=== PATIENT | male | born 1975 | race Caucasian/White ===

== ENCOUNTER 2018-07-15 23:26 | Emergency (ER) | payer OTHER ==
[~2018-07-15] VITALS: Ht 170.2 cm; Wt 111.2 kg
[2018-07-16 00:03] VITALS: Ht 170.2 cm; Wt 111.2 kg
[2018-07-16] MEDS ORDERED: KETOROLAC 60 MG INJ IM STA (03:33)
[2018-07-16] MEDS ORDERED: IBUP-1542 PO (04:51)
[2018-07-16 05:13] VITALS: BP 153/91; PULSE 91; RESP 19
--- NOTE | 2018-07-17 12:10 | ERD ---
ER Documentation Chief Complaint Chief Complaint pain left wrist, left lower leg around 1643, tried to break a fall HPI 43-year-old male presents after tripping and hurting his left wrist and left calf at 4 PM today. Patient states that he was walking when he tripped. Denies any predisposing syncope or dizziness. States that the pain in the wrist is 8 out of 10 and he has limited range of motion of the wrist. Pain is nonradiating and dull. Denies any numbness or tingling, pallor, or cyanosis. Patient is ambulatory. Denies past medical history. Denies allergies. Denies medications. Denies surgeries. Denies alcohol, tobacco, drug use. Up to date on vaccines. ROS All systems reviewed and are negative except as per history of present illness. Medications Home Meds Active Scripts Ibuprofen* (Motrin*) 600 Mg Tab, 600 MG PO Q6 for pain, #30 TAB Prov:RAN TORRES 07/16/18 Allergies Allergies: Coded Allergies: No Known Drug Allergies (Verified Allergy, Unknown, 07/16/18) PMhx/Soc Medical and Surgical Hx: pt denies Medical Hx History of Surgery: Yes (cyst removed from lower back) Anesthesia Reaction: No Hx Neurological Disorder: No Hx Respiratory Disorders: No Hx Cardiac Disorders: No Hx Psychiatric Problems: No Hx Miscellaneous Medical Probl: No Hx Alcohol Use: No Hx Substance Use: No Hx Tobacco Use: Yes (quit) Smoking Status: Former smoker FmHx Family History: No diabetes, No coronary disease, No other Physical Exam Vitals Vital Signs Date Temp Pulse Resp B/P (MAP) Pulse Ox O2 O2 Flow FiO2 Time Delivery Rate 07/16/18 98.3 91 19 153/91 99 Room Air 05:13 (111) 07/16/18 98.7 103 18 160/86 97 00:03 (110) Physical Exam Const: No acute distress Head: Atraumatic Eyes: Normal Conjunctiva ENT: Normal External Ears, Nose and Mouth. Resp: Clear to auscultation bilaterally Cardio: Regular rate and rhythm, no murmurs Skin: No petechiae or rashes Back: No midline or flank tenderness Left wrist: Left wrist is tender to palpation over the radial ulnar junction. There is associated edema. There is no overlying skin lesion or ecchymosis or erythema. Patient has limited flexion and extension of the wrist. Patient has flexion and extension of fingers. Radial pulses intact. Distal sensation is intact. There is no pallor or cyanosis. Left Le cm nummular abrasion noted over the inferior patellar region. There is no edema, ecchymosis, or bony deformity noted in the patellar region, and no tenderness to palpation.. Ankle has full range of motion with no tenderness to palpation. Mays test is negative. There is some tenderness to palpation over the calf although there is no obvious edema, or erythema or ecchymosis. Knee has full range of motion. All compartments are warm and soft. Distal pulses and sensation are intact. There is no pallor or cyanosis. Neur: Awake and alert Psych: Normal Mood and Affect Results 24 hrs Current Medications Medications Dose Sig/Rudy Start Time Status Last (Trade) Ordered Route PRN Stop Time Admin Dose Reason Admin Ketorolac 60 mg ONCE STAT 07/16/18 DC 07/16/18 Tromethamine IM 03:33 03:42 (Toradol) 07/16/18 03:34 Procedures/MDM DIAGNOSTIC IMAGING REPORT Patient: KD FIGUEROA : 1975 Age: 43 Sex: M MR #: [id number] DOS: 07/16/18 0328 Ordering MD: RAN TORRES Location: [facility] Room/Bed: PROCEDURE: Left hand series CLINICAL INDICATION: Trauma TECHNIQUE: AP, lateral and oblique images left hand were obtained COMPARISON: None FINDINGS: There is an acute comminuted fracture of the distal left radius with intra- articular extension and minimal volar displacement. No other fractures or dislocations. No focal bony blastic or lytic lesions. Soft tissues unremarkable. IMPRESSION: Comminuted intra-articular distal left radial fracture as above. RPTAT:AAJJ Physician Zach Date Time Electronically viewed and signed by Physician Zach on 07/16/2018 04:32 BM/ CC: RAN TORRES [id number] DIAGNOSTIC IMAGING REPORT Patient: KD FIGUEROA : 1975 Age: 43 Sex: M MR #: [id number] DOS: 07/16/18 0328 Ordering MD: RAN TORRES Location: [facility] Room/Bed: PROCEDURE: Left knee series CLINICAL INDICATION: Trauma TECHNIQUE: AP, lateral and oblique images were obtained of the left knee COMPARISON: None FINDINGS: There is no evidence acute fracture dislocation. The bony mineralization is normal. No focal bony blastic or lytic lesions. No evidence of left knee joint effusion. Soft tissues are unremarkable. IMPRESSION: Unremarkable left knee series. RPTAT:AAJJ Barry Jones Physician Date Time Electronically viewed and signed by Barry Jones Physician on 07/16/2018 04:34 BM/ CC: RAN TORRES [id number] DIAGNOSTIC IMAGING REPORT Patient: KD FIUGEROA : 1975 Age: 43 Sex: M MR #: [id number] DOS: 07/16/188 Ordering MD: RAN TORRES Location: E Room/Bed: PROCEDURE: Left leg series CLINICAL INDICATION: Trauma TECHNIQUE: AP and lateral views left leg were obtained. Total 4 images are available for review. COMPARISON: None FINDINGS: No evidence of acute fractures or dislocations. The bony mineralization is normal. No focal bony blastic or lytic lesions. No foreign bodies. Soft tissues unremarkable. Tiny posterior left calcaneal spur. IMPRESSION: No evidence acute fractures or dislocations. RPTAT:AAJJ Physician Zach Date Time Electronically viewed and signed by Barry Jones Physician on 07/16/2018 04:31 BM/ CC: RAN TORRES [id number] DIAGNOSTIC IMAGING REPORT Patient: KD FIGUEROA : 1975 Age: 43 Sex: M MR #: [id number] DOS: 07/16/18 0328 Ordering MD: RAN TORRES Location: [facility] Room/Bed: PROCEDURE: Left wrist series CLINICAL INDICATION: Trauma TECHNIQUE: AP, 2 oblique and lateral views of the left wrist were obtained. COMPARISON: None FINDINGS: There is a comminuted acute distal left radial fracture with intra-articular extension and slight volar displacement. No other fracture or dislocation. No focal bony blastic or lytic lesion. Soft tissues are otherwise unremarkable. IMPRESSION: Acute intra-articular minimally-displaced distal left radial fracture. RPTAT:AAJJ Physician Zach Date Time Electronically viewed and signed by Physician Zach on 07/16/2018 04:33 BM/ CC: RAN TORRES [id number] 43-year-old male presents after tripping and hurting his left wrist and left calf at 4 PM today. Patient states that he was walking when he tripped. Denies any predisposing syncope or dizziness. States that the pain in the wrist is 8 out of 10 and he has limited range of motion of the wrist. Pain is nonradiating and dull. Denies any numbness or tingling, pallor, or cyanosis. X-rays were performed's were positive only for comminuted distal radial fracture of left radius with intra-articular articulation and minimal displacement. Patient refused opiates in the ER so he was given Toradol. I discussed the case with Dr. Whittington to determine whether this required emergent Orth O follow-up and he said that patient could be discharged and advised to go to Orth O on his own. I educated the patient regarding this and patient agreed to follow-up on his own with Orth O. I have low suspicion for neurovascular compromise, compartment syndrome, osteomyelitis, septic joint, or other emergent condition. Patient gi lyric Rx for ibuprofen and volar splint application was placed. Abrasion to the knee was irrigated with normal saline and dressed. Patient was given crutches to assist with walking. Advised the patient that since the leg x-rays were normal, patient most likely had soft tissue injury such as a muscle strain. This would need to be followed up with Orth O as well. Patient understood. Splint Assessment: Neurovascularly intact post splint placement with good fit. Patient discharged with strict ER precautions. Patient advised to follow up with PMD for referral to Ortho. All questions answered at discharge. Departure Diagnosis: Primary Impression: Distal radial fracture Encounter type: initial encounter Fracture type: closed Fracture morphology: other intra-articular Laterality: left Qualified Codes: S52.572A - Other intraarticular fracture of lower end of left radius, initial encounter for closed fracture Additional Impression: Pain of left calf Condition: Stable Patient Instructions: Radial Head Fracture Referrals: [facility] YOU HAVE RECEIVED A MEDICAL SCREENING EXAM AND THE RESULTS INDICATE THAT YOU DO NOT HAVE A CONDITION THAT REQUIRES URGENT TREATMENT IN THE EMERGENCY DEPARTMENT. FURTHER EVALUATION AND TREATMENT OF YOUR CONDITION CAN WAIT UNTIL YOU ARE SEEN IN YOUR DOCTORS OFFICE WITHIN THE NEXT 1-2 DAYS. IT IS YOUR RESPONSIBILITY TO MAKE AN APPOINTMENT FOR FOLOW-UP CARE. IF YOU HAVE A PRIMARY DOCTOR --you should call your primary doctor and schedule an appointment IF YOU DO NOT HAVE A PRIMARY DOCTOR YOU CAN CALL OUR PHYSICIAN REFERRAL HOTLINE AT IF YOU CAN NOT AFFORD TO SEE A PHYSICIAN YOU CAN CHOSE FROM THE FOLLOWING ON LICENSE OF [facility] [address] [facility]. [facility] [address] [facility] [facility] [address] [facility] [facility] [address] [facility]. [facility] [address] [facility]. [facility]. [address] Additional Instructions: Call your primary doctor to receive a referral for an orthopedist within 24 hours. There is risk for long-term complications if you do not get into the orthopedist right away. If you are unable to get into an orthopedist please return to this facility. RAN TORRES Jul 17, 2018 12:10
== END 2018-07-16 05:15 | disposition home or self-care (01) ==
LOC: FTE 23:26
DX: S52.572A Other intraarticular fracture of lower end of left radius, initial encounter for closed fracture (principal); S89.92XA Unspecified injury of left lower leg, initial encounter; S80.212A Abrasion, left knee, initial encounter; W01.0XXA Fall on same level from slipping, tripping and stumbling without subsequent striking against object, initial encounter; Y92.9 Unspecified place or not applicable; Z87.891 Personal history of nicotine dependence
CPT/HCPCS: 29125; 73110; 73130; 73562; 73590; 96372; J1885; Z7502